=== PATIENT | male | born 1995 | race Caucasian/White ===

== ENCOUNTER 2025-08-09 16:51 | Emergency (ER) | payer BC ==
[~2025-08-09] VITALS: Ht 180.3 cm; Wt 91.0 kg
[2025-08-09 17:14] VITALS: O2SAT 99
[2025-08-09 17:19] VITALS: BP 133/79; PULSE 73; RESP 16; TEMP 37.1; O2SAT 99
== END 2025-08-09 20:51 | disposition left against medical advice (07) ==
LOC: ER 16:51
DX: Z53.21 Procedure and treatment not carried out due to patient leaving prior to being seen by health care provider (principal)